=== PATIENT | male | born 2000 | race African-American/Black ===

== ENCOUNTER 2022-02-05 00:17 | Emergency (ER) | payer MEDICAID ==
[~2022-02-05] VITALS: Ht 172.7 cm; Wt 87.0 kg
[2022-02-05 03:06] VITALS: BP 105/62
[2022-02-05] MEDS ORDERED: IBUP-2029 MT (08:29)
== END 2022-02-05 08:47 | disposition home or self-care (01) ==
LOC: ER 00:17
DX: S60.211A Contusion of right wrist, initial encounter (principal); V49.49XA Driver injured in collision with other motor vehicles in traffic accident, initial encounter; Y93.89 Activity, other specified; Y92.89 Other specified places as the place of occurrence of the external cause; Y99.8 Other external cause status; M25.511 Pain in right shoulder
CPT/HCPCS: 73030; 73070; 73110; 99284